=== PATIENT | male | born 1945 | race Caucasian/White ===

== ENCOUNTER → 2016-08-19 08:06 | Outpatient (CLI) | payer MEDICARE, OTHER | END | disposition home or self-care (01) | LOC: D.CT 08:06 | DX: K57.90 Diverticulosis of intestine, part unspecified, without perforation or abscess without bleeding (principal) ==

== ENCOUNTER 2018-02-07 05:40 | Day surgery (SDC) | payer MEDICARE, OTHER ==
[2018-02-06 12:00] LABS: BASOPHILS 0.1 % (0-2); EOSINOPHILS 1.6 % (0-7); HEMATOCRIT 37.8 % (42.0-54.0); IMMATURE GRANULOCYTES 0.1 % (0-5); LYMPHOCYTES 24.4 % (15-50); MCH 30.4 pg (26.0-34.0); MCHC 34.4 g/dL (31.0-37.0); MCV 88.3 fL (80.0-100.0); MEAN PLATELET VOLUME 11.2 fL (7.4-10.4); MONOCYTES 8.7 % (2-11); NEUTROPHILS 65.1 % (40-80); PLATELET COUNT 193 10x3/uL (130-400); RBC 4.28 10x6/uL (4.20-6.10); RDW 13.5 % (11.5-14.5); WBC 6.9 10x3/uL (4.8-10.8)
[2018-02-06 12:19] LABS: ANION GAP 8.9 mmol/L (8-16); CALCIUM 9.1 mg/dL (8.5-10.1); CARBON DIOXIDE 30.7 mmol/L (21.0-32.0); CREATININE - SERUM 1.8 mg/dL (0.6-1.3); POTASSIUM - SERUM 3.6 mmol/L (3.5-5.1)
[~2018-02-07] VITALS: Ht 193 cm; Wt 99.8 kg
--- NOTE | ~2018-02-07 | OP ---
PATIENT NAME: CASEY HIGGINS MEDICAL RECORD: [id number] :45 [facility] DATE: SURGEON: JUANITO SAAVEDRA MD DATE OF OPERATION: 02/07/2018 SURGEON: Juanito Saavedra MD ANESTHESIA: MAC by Pako Rahman CRNA DIAGNOSIS: Elevated PSA 9.4 on 12/08/2017. PROCEDURE: Transrectal ultrasound and prostate biopsy. FINDINGS: 144 gram prostate with right hypoechoic lesions. SPECIMENS: Prostate biopsy cores. BLOOD LOSS: Minimal. CLINICAL HISTORY: This is a 72-year-old male, who was found to have an elevated PSA on serum testing. His PSA was 6.6 in July of 2016. When it was redone on November of 2017, it was 9.4. He has a positive family history of prostate cancer with his brother having had prostate cancer. His brother was diagnosed at age 74 and the brother had radiation treatment. He has some obstructive BPH symptoms of voiding. On rectal examination, he had an enlarged prostate, which I estimated at over 80 grams. No nodules were palpated, however. He comes today to have a transrectal ultrasound and prostate biopsy. He was given Ancef excavating contractor to the OR. He has no medication allergies. DESCRIPTION OF PROCEDURE: The patient was given IV sedation. He was placed into dorsal lithotomy position. The transrectal ultrasound probe was introduced and prostate size measurements were obtained. We initially obtained the prostate size estimate of 199 grams. We then redid the measurements just to confirm and we received a size estimate of 144. He has a very enlarged prostate. Within the prostate, 2 hypoechoic lesions were seen in the right mid and basal areas. Sextant biopsies were obtained with at least 3 cores from each sextant. In the right mid, I tried to target the lesions that were hypoechoic. Once all the cores were obtained, the procedure was terminated. We did notice during the prostate biopsy and transrectal ultrasound that his bladder was extremely full. At the end of the case, the penis was prepped and a red rubber catheter was inserted to drain the bladder. The catheter was then removed. I will see the patient in followup to review the pathology with him. TRANSINT:[id number] Voice Confirmation ID: [id number] DOCUMENT ID: [id number] JUANITO SAAVEDRA MD at 1729 CC: [id number] DICTATION DATE: 02/07/18 0945 GOLF CADDIE: 02/07/18 1216 [facility] 02/07/18 [place] [id number] [place] [id number]
[~2018-02-07 05:40] MED LIST: GLIPIZIDE10 MG PO; GLUCOPHAGE1000 MG PO; HCTZ25 MG PO; LANTUS INSULIN10 ML SC; LIPITOR40 MG PO; LOTENSIN40 MG PO; MULTIPLE VITAMI1 TA1 PO
[2018-02-07] MEDS ORDERED: ESTER-C 500 MG1 TAB PO (07:38)
[2018-02-07 07:41] VITALS: Ht 193 cm; Wt 99.8 kg
[2018-03-26] MEDS ORDERED: OXYBUTYNIN CHLOR5 MG PO (12:55)
[2018-03-26] MEDS ORDERED: ACTOPLUS MET X1 EACH PO (12:56)
== END 2018-02-07 11:30 | disposition home or self-care (01) ==
LOC: D.OPS 05:40 → D.PAN 08:30 → D.OPS 08:30
PROVIDERS: Anesthesiology
DX: R97.20 Elevated prostate specific antigen [PSA] (principal); Z01.812 Encounter for preprocedural laboratory examination

== ENCOUNTER → 2018-02-21 12:23 | Outpatient (CLI) | payer MEDICARE, OTHER ==
[2018-02-07 07:41] VITALS: BMI 26.8
[~2018-02-21 12:23] MED LIST changes: +ACTOPLUS MET X1 EACH PO; +ACTOS15 MG PO; +ESTER-C 500 MG1 TAB PO; +HYDROCODON-ACE1 EAC7 PO; +OXYBUTYNIN CHLOR5 MG PO
== END | disposition home or self-care (01) ==
LOC: D.LABREF 12:23
DX: N39.0 Urinary tract infection, site not specified (principal)

== ENCOUNTER 2018-03-27 00:51 | Day surgery (SDC) | payer MEDICARE, OTHER ==
[2018-03-26 13:25] LABS: HEMATOCRIT 38.4 % (42.0-54.0); HEMOGLOBIN 13.1 g/dL (13.5-17.5); MCH 29.8 pg (26.0-34.0); MCHC 34.1 g/dL (31.0-37.0); MCV 87.5 fL (80.0-100.0); MEAN PLATELET VOLUME 11.1 fL (7.4-10.4); RBC 4.39 10x6/uL (4.20-6.10); RDW 14.2 % (11.5-14.5); WBC 7.3 10x3/uL (4.8-10.8)
[2018-03-26 13:52] LABS: ANION GAP 10.6 mmol/L (8-16); CALCIUM 8.6 mg/dL (8.5-10.1); CARBON DIOXIDE 28.8 mmol/L (21.0-32.0); CREATININE - SERUM 1.4 mg/dL (0.6-1.3); POTASSIUM - SERUM 4.4 mmol/L (3.5-5.1)
[~2018-03-27] VITALS: Ht 188 cm; Wt 102.3 kg
--- NOTE | ~2018-03-27 | OP ---
PATIENT NAME: CASEY HIGGINS MEDICAL RECORD: [id number] :45 LOCATION:[facility] ADMISSION DATE: SURGEON: JUANITO SAAVEDRA MD DATE OF OPERATION: 03/27/2018 SURGEON: Juanito Saavedra MD ANESTHESIA: General anesthesia by Dr. Tejas Knapp. DIAGNOSIS: Urinary retention due to obstructive benign prostatic hypertrophy. FINDINGS: A very large trilobar hyperplasia. Ongoing bleeding made visualization of the ureteral orifices very difficult. No bladder tumors seen. PROCEDURES: Cystoscopy, GreenLight laser transurethral resection of the prostate. Power 80-120 carlos, laser on time 29 minutes and 31 seconds, total energy 161,053 kilojoules. The procedure was then converted to bipolar transurethral resection of the prostate. SPECIMENS: Prostate resection chips. BLOOD LOSS: Difficult to quantitate. CBC will be drawn in the recovery room. CLINICAL HISTORY: This is a 73-year-old male, who is in urinary retention. He has an indwelling Dee catheter for some time. He is on finasteride and tamsulosin. He had an elevated PSA prior to starting finasteride of 9.4. He had a transrectal ultrasound, which revealed a massive prostate enlarged at 144 grams. A prostate biopsy revealed that he had benign tissues. There was chronic inflammation also. On 02/21/2018, he had a UTI with Enterococcus faecalis and he was treated with amoxicillin. At one point, he had been performing self-intermittent catheterization. He had trouble with this and he went to the [facility] Emergency Room on 02/26/2018, and they placed a Dee catheter into him on that date. The patient did not wish to wait a year for finasteride to take effect. I did discuss an open suprapubic prostatectomy with him. He is not wanting to have open surgery. Therefore, we will try a GreenLight laser transurethral resection of the prostate. However, I told him that this procedure would be very difficult given the massive size of his prostate. He is not allergic to any medications and he was given Ancef 1 gram IV pupil personnel services director to the OR. DESCRIPTION OF PROCEDURE: The patient was given induction of general anesthesia. He was placed in the dorsal lithotomy position and prepped and draped. I introduced the laser resectoscope using obturator. Looking in the bladder, I saw quite significant amount of venous bleeding, which obscured the view of the bladder. However, looking carefully on the bladder wall, I did not see any bladder tumors. The bladder wall was heavily trabeculated. It was difficult to see the ureteral orifices due to bleeding from the bladder neck. Looking more distally, I could see massive enlargement of the lateral lobes. The verumontanum was seen at the apex of the prostate. We then introduced the laser fiber. We started the resection in the region between the bladder neck and just proximal to the verumontanum. I initially started with 80 carlos, I tried to devascularize the prostatic urethra. However, as the prostate is extremely vascular; not only it is vascular, it is richly suppled with arterial blood gases. We ran across many arterioles, which bled. These required a special effort to coagulate with the coagulation setting of the laser. OPERATIVE REPORT [id number] CASEY HIGGINS Eventually, I had the entire prostate partly resected, but the bleeding kept getting more and more heavy. Visualization was extremely difficult. I increased the power level to 120 carlos as the tissue became a bit more desiccated. At a certain point, I decided that I could not stop the bleeding using the laser and therefore we switched to the bipolar resectoscope. A 26-Surinamese resectoscope Olympus with the 24-Surinamese resection loop was used. Normal saline was used for irrigation. Starting at the bladder neck, I again started to resect. We encountered significant quantities of arterial bleeding. Any arterial bleeder that I could find was immediately cauterized. In this very tedious manner, we managed to remove a lot of tissue. In fact, on the left lateral wall, I have actually perforated through into the venous sinuses. From the lateral wall, I then migrated to the posterior wall. Finally, the right lateral wall was resected. A significant quantity of tissue still is present, but there is a good channel for him to void through. We tried to leave the anterior wall alone. However, I spent a considerable amount of time looking on the entire surface of the prostate to coagulate any small arteriolar bleeding. There was some bleeding from the anterior wall in either bladder neck and some of this had to be resected in order to fully coagulate the arterial responsible for the bleeding. At the end of the procedure, no further arterial bleeding was seen. A guidewire was inserted into the bladder through the resectoscope sheath. The resectoscope sheath was then removed, leaving the guidewire in place. We used an Amplatz Super Stiff wire. A 22-Surinamese 3-way redding tip Dee catheter was then inserted over the guidewire into the bladder. Once the catheter was fully in the bladder, the balloon was inflated with 30 cc of sterile water. Normal saline bladder irrigation was started for continuous bladder irrigation. I will admit the patient to hospital for the continuous bladder irrigation. Once the drains clear, I will send him home with the catheter to have the catheter removed in 1 to 2 weeks' time. TRANSINT:[id number] Voice Confirmation ID: [id number] DOCUMENT ID: [id number] JUANITO SAAVEDRA MD at 1246 CC: [id number] DICTATION DATE: 03/27/18 1151 RHINESTONE SETTER: 03/27/18 1243 [facility] [address] [place] [address]
[~2018-03-27 00:51] MED LIST changes: -ACTOS15 MG PO; -HYDROCODON-ACE1 EAC7 PO
[2018-03-27 06:54] VITALS: BP 138/78; BMI 28.7
[2018-03-27 12:20] LABS: BASOPHILS 0.2 % (0-2); EOSINOPHILS 0.8 % (0-7); IMMATURE GRANULOCYTES 0.4 % (0-5); LYMPHOCYTES 14.5 % (15-50); MCHC 32.3 g/dL (31.0-37.0); MEAN PLATELET VOLUME 11.2 fL (7.4-10.4); MONOCYTES 5.6 % (2-11); NEUTROPHILS 78.5 % (40-80); RDW 14.5 % (11.5-14.5)
[2018-03-27 12:29] LABS: HEMATOCRIT 29.1 % (42.0-54.0); HEMOGLOBIN 9.4 g/dL (13.5-17.5); MCV 89.8 fL (80.0-100.0); PLATELET COUNT 148 10x3/uL (130-400); RBC 3.24 10x6/uL (4.20-6.10); WBC 13.1 10x3/uL (4.8-10.8)
[2018-03-27 20:39] VITALS: BP 131/70
[2018-03-27 22:44] VITALS: BP 138/78; Ht 188 cm; Wt 102.3 kg
[2018-03-28] VITALS: BP 112/56
[2018-03-28 04:00] VITALS: BP 154/72
[2018-03-28 07:36] VITALS: BP 151/79
[2018-03-28 08:47] LABS: BASOPHILS 0.1 % (0-2); EOSINOPHILS 0.5 % (0-7); HEMATOCRIT 28.7 % (42.0-54.0); HEMOGLOBIN 9.4 g/dL (13.5-17.5); IMMATURE GRANULOCYTES 0.2 % (0-5); LYMPHOCYTES 9.2 % (15-50); MCHC 32.8 g/dL (31.0-37.0); MCV 88.6 fL (80.0-100.0); MEAN PLATELET VOLUME 10.9 fL (7.4-10.4); MONOCYTES 7.6 % (2-11); NEUTROPHILS 82.4 % (40-80); RBC 3.24 10x6/uL (4.20-6.10); RDW 14.8 % (11.5-14.5); WBC 10.2 10x3/uL (4.8-10.8)
[2018-03-28 08:51] LABS: PLATELET COUNT 189 10x3/uL (130-400)
[2018-03-28 08:55] LABS: CARBON DIOXIDE 22.4 mmol/L (21.0-32.0); CHLORIDE - SERUM 106 mmol/L (98-107); GLUCOSE 225 mg/dL (74-106); POTASSIUM - SERUM 3.8 mmol/L (3.5-5.1); SODIUM 137 mmol/L (136-145)
[2018-03-28 08:56] LABS: CALC OSMOLALITY 279 mosm/kg (275-300); UREA NITROGEN 11 mg/dL (7-18); eGFR NON AFRICAN AMERICAN 78 mL/min (90-120)
[2018-03-28 08:57] LABS: CALCIUM 6.8 mg/dL (8.5-10.1)
[2018-03-28] MEDS ORDERED: HYDROCODON-ACE1 EAC7 PO (09:28)
[2018-03-28] MEDS ORDERED: ACTOS15 MG PO (09:36)
== END 2018-03-28 14:35 | disposition home or self-care (01) ==
LOC: OBSVTIME → D.OPS 00:51 → D.PAN 07:30 → D.OPS 07:30 → D.M2 19:03 → D.OPS 19:04 → D.M2 19:04 → OBSVTIME 03-28 13:26 → D.OPS 03-28 14:35 → D.M2 03-28 14:35
PROVIDERS: Anesthesiology; Urology
DX: N40.1 Benign prostatic hyperplasia with lower urinary tract symptoms (principal); R33.8 Other retention of urine; E11.9 Type 2 diabetes mellitus without complications; I10 Essential (primary) hypertension; Z87.891 Personal history of nicotine dependence

== ENCOUNTER → 2018-04-18 18:44 | Outpatient (CLI) | payer MEDICARE, OTHER ==
[2018-03-27 22:44] VITALS: BMI 28.3
[~2018-04-18 18:44] MED LIST changes: +ACTOS15 MG PO; +HYDROCODON-ACE1 EAC7 PO
== END | disposition home or self-care (01) ==
LOC: D.LABREF 18:44
DX: D72.829 Elevated white blood cell count, unspecified (principal); R31.9 Hematuria, unspecified

== ENCOUNTER 2018-04-19 05:16 | Day surgery (SDC) | payer MEDICARE, OTHER ==
[2018-04-18 16:04] LABS: BASOPHILS 0.5 % (0-2); EOSINOPHILS 2.1 % (0-7); HEMOGLOBIN 11.3 g/dL (13.5-17.5); IMMATURE GRANULOCYTES 0.3 % (0-5); LYMPHOCYTES 21.6 % (15-50); MCHC 33.2 g/dL (31.0-37.0); MCV 87.4 fL (80.0-100.0); MEAN PLATELET VOLUME 10.2 fL (7.4-10.4); MONOCYTES 7.3 % (2-11); NEUTROPHILS 68.2 % (40-80); RBC 3.89 10x6/uL (4.20-6.10); RDW 14.3 % (11.5-14.5); WBC 7.5 10x3/uL (4.8-10.8)
[2018-04-18 16:21] LABS: ANION GAP 14.4 mmol/L (8-16); CARBON DIOXIDE 26.9 mmol/L (21.0-32.0); CREATININE - SERUM 1.2 mg/dL (0.6-1.3); POTASSIUM - SERUM 4.3 mmol/L (3.5-5.1)
[2018-04-18 16:24] LABS: PLATELET COUNT 348 10x3/uL (130-400)
[~2018-04-19] VITALS: Ht 188 cm; Wt 101.8 kg
--- NOTE | ~2018-04-19 | OP ---
PATIENT NAME: CASEY HIGGINS MEDICAL RECORD: [id number] :45 LOCATION:.[facility] ADMISSION DATE: SURGEON: MACK SAAVEDRA MD DATE OF OPERATION: 04/19/2018 SURGEON: Mack Saavedra MD ANESTHESIA: TIVA by Mack Keenan MD PROCEDURE: Cystoscopy. DIAGNOSIS: Bladder outlet obstruction post TURP. FINDINGS: No blood clots, no retained prostatic chips. He has some flaps from the prostate resection, which act as an obstruction to the flow. ESTIMATED BLOOD LOSS: None. CLINICAL HISTORY: This is a 73-year-old male, who was in urinary retention. On transrectal ultrasound, he had a very large prostate being measured at 144 grams. About a month ago, he had a GreenLight laser TURP. After more than 160,000 kilojoules of energy, the bleeding was so extensive that I had to convert to bipolar resection. Even with bipolar resection, I removed a further 40 grams of tissue. Because of the heavy bleeding, I had to cease. He made an uncomplicated recovery. He is able to void. However, he notes that there are times that it is very difficult for him to get a flow going. He may also have episodes of urge incontinence. This suggests that there is still a persistent bladder outlet obstruction. I wanted to be sure that there was no retained prostatic chip in the bladder acting as an outlet obstruction. He comes today for cystoscopy. He is not allergic to medication. He was given Ancef rest room matron to the OR. DESCRIPTION OF PROCEDURE: The patient was given IV sedation. He was placed into the dorsal lithotomy position and prepped and draped. Lidocaine jelly was inserted into the urethra. A 21-Stateless cystoscope with 30-degree lens was used for visualization. No penile urethral strictures were seen. The prostate showed signs of extensive resection, although there is still quite a lot of residual BPH left. Near the bladder neck, I see 2 flaps of tissue, which together can act as a flap valve to obstruct the bladder outlet. I was very tempted to resect these, however, given the fact that he is actually moving to [place] in the next few days, I decided against it. He has a urologist in [place]. His urologist in [place] will have to complete the TURP for him. TRANSINT:[id number] Voice Confirmation ID: [id number] DOCUMENT ID: [id number] MACK SAAVEDAR MD at 0856 CC: [id number] DICTATION DATE: 04/19/18814 LUMBER CARRIER: 04/19/18 0837 [facility] [address] [place] [id number]
[2018-04-19 06:08] VITALS: BP 149/79; Ht 188 cm; Wt 101.8 kg
== END 2018-04-19 10:00 | disposition home or self-care (01) ==
LOC: D.OPS 05:16 → D.PAN 07:30 → D.OPS 07:30
PROVIDERS: Anesthesiology
DX: N13.8 Other obstructive and reflux uropathy (principal); Z98.890 Other specified postprocedural states; Z01.812 Encounter for preprocedural laboratory examination

== ENCOUNTER 2018-04-24 05:10 | Inpatient (IN) | payer MEDICARE, OTHER ==
[~2018-04-24] VITALS: Ht 193 cm; Wt 99.8 kg
--- NOTE | ~2018-04-24 | OP ---
PATIENT NAME: CASEY HIGGINS MEDICAL RECORD: [id number] :45 LOCATION:[facility] ADMISSION DATE: SURGEON: MACK SAAVEDRA MD DATE OF OPERATION: 04/24/2018 SURGEON: Mack Saavedra MD ANESTHESIA: General anesthesia by Aishwarya Abreu CRNA. DIAGNOSIS: Obstructive benign prostatic hypertrophy with overflow urinary incontinence. PROCEDURE: Cystoscopy, transurethral resection of the prostate using the bipolar resectoscope, OR duration 3.5 hours, 82 liters of normal saline irrigation used during the resection. FINDINGS: Obstructive benign prostatic hypertrophy with a lot of remaining residual tissue. Very vascular prostate with multiple arterial bleeding vessels. No bladder tumors were seen. Heavily trabeculated bladder. SPECIMENS: Prostate resection chips. BLOOD LOSS: 1.5 liters. Intraoperative hemoglobin had dropped to 8.2 from 11.9 preoperatively. Two units of packed red blood cells was transfused intraoperatively. CLINICAL HISTORY: This is a 73-year-old male, who initially presented with urinary retention. He had a very enlarged prostate also. We did a transrectal ultrasound and prostate biopsy on him because of his elevated PSA. The transrectal ultrasound estimated to his prostate size at 144 grams. His prostate biopsy was benign. About a month ago, he had an attempted GreenLight laser TURP. After 160,000 kilojoules of laser energy, the excessive bleeding from the prostate made continuing on with the laser untenable. We then switched over the bipolar resectoscope and I resected it and was best as I could given the severity of bleeding. Postoperatively, he has maintained that he still had trouble voiding. He has had episodes where he could not void. He reverted to intermittent catheterization. He would get residuals of 600 mL to 1 liter. I performed cystoscopy on him to determine how much obstruction was remaining. He did not have any resection chips in the bladder; however, he had a lot of tissue flaps, especially around the bladder neck, which were acting as a bladder outlet obstruction. There was still a lot of unresected prostate tissue. The patient is intending to move to [place] at the end of the month. Therefore, at that time I did not proceed with resection as I suppose that his new urologist in [place] would deal with this issue. However, on following up with the patient, the patient wanted to get this addressed. The risk of bleeding is very clear in this patient and he understands that risk as well as his . He is not allergic to any medications. We had him on Ancef carbonation equipment tender to the OR. DESCRIPTION OF PROCEDURE: The patient was given induction of general anesthesia. He was placed in the dorsal lithotomy position and prepped and draped. I used the bipolar resectoscope, 26-Turkmen with a 24-Turkmen resection loop. A 30-degree lens was used for visualization. He does not have any urethral strictures. Going back into the prostate, he has a lot of residual prostate tissue. There are tissue flaps near the bladder neck, which acts as an outflow obstruction. Even at his last surgery, I could not clearly see his OPERATIVE REPORT [id number] CASEY HIGGINS ureteral orifices. However, I did not resect into the bladder neck beyond what I had resected previously. Going from the level of the bladder neck, all the way to the level of the verumontanum, I started resecting the prostate tissue initially, the bladder neck area. Immediately, I encountered significant bleeding. I would try to cauterize the arterial bleeding. However, as arterial bleeding was often hidden behind residual BPH tissue, this tissue had to be resected in order to allow the first bleeder to be visualized. Of course, once the tissue was resected, then more bleeders were present and in this way ultimately the entire TURP was performed to completion. I found that most of the arterial bleeders were located adjacent to prostatic stones. Therefore, I am in the right plane. In fact, some of the lateral lobes bilaterally I have perforated through into the periprostatic fat. There was significant bleeding throughout the surgery. I did not extend the resection beyond the verumontanum. There was also a significant amount of median lobe. I dissected out the median lobe without undermining the bladder. At the end of the procedure and throughout the procedure, I would periodically use an [employer] evacuator to remove the prostate resection chips. Several larger chips were also removed using a resection loop as a means to remove pinch out and removed the specimens. During the surgery, I went through about four bipolar resection loops, which I either burned out or broke it as I was trying to use them to remove tissue specimens with. Towards the end of the procedure, I looked at every quadrant of the prostate going stepwise from 12 o'clock and moving from bladder neck all the way to the level of the verumontanum. I would cauterize anything that looked like it was bleeding. A very large arterial bleeder was noted in the left lateral wall. This was apparently the source of most of my bleeding during surgery. This was heavily cauterized. A similar vessel was noted on the right lateral lobe and this was also heavily cauterized. Multiple smaller arterial vessels were also cauterized. At the end of the case, the drainage fluid was relatively clear. There were no prostate resection chips in the bladder. The scope lens was removed, leaving the sheath in place. Through the sheath, I inserted a Sensor wire into the bladder. The sheath was then removed, leaving the Sensor wire in place. An 18-Turkmen 3-way Dee catheter, which has been converted to a kasaan tip catheter was placed over the guidewire into the bladder. Once the catheter was up to its hub at the urethral meatus, the Dee balloon was inflated with 30 cc of sterile water. Continuous bladder irrigation was then started with normal saline. I also taped the catheter to his leg under tension to tamponade venous bleeding. The patient will be brought into the hospital for continuous bladder irrigation. TRANSINT:[id number] Voice Confirmation ID: [id number] DOCUMENT ID: [id number] MACK SAAVEDRA MD at 1429 CC: [id number] DICTATION DATE: 04/24/18 1228 APPLIANCE SERVICE REPRESENTATIVE: 04/24/18 1256 [facility] [address] [place] [address]
[2018-04-24 05:27] LABS: HEMATOCRIT 35.6 % (42.0-54.0); HEMOGLOBIN 11.9 g/dL (13.5-17.5); MCHC 33.4 g/dL (31.0-37.0); MCV 86.6 fL (80.0-100.0); MEAN PLATELET VOLUME 10.3 fL (7.4-10.4); RBC 4.11 10x6/uL (4.20-6.10); RDW 14.1 % (11.5-14.5); WBC 7.2 10x3/uL (4.8-10.8)
[2018-04-24 05:50] LABS: ANION GAP 12.9 mmol/L (8-16); CALCIUM 9.4 mg/dL (8.5-10.1); CARBON DIOXIDE 27.5 mmol/L (21.0-32.0); CREATININE - SERUM 1.1 mg/dL (0.6-1.3); POTASSIUM - SERUM 4.4 mmol/L (3.5-5.1)
[2018-04-24 06:44] VITALS: BP 142/73; BMI 28.3
[2018-04-24 10:22] LABS: BASOPHILS 0.4 % (0-2); EOSINOPHILS 1.5 % (0-7); IMMATURE GRANULOCYTES 0.2 % (0-5); LYMPHOCYTES 24.1 % (15-50); MCH 28.6 pg (26.0-34.0); MCHC 32.7 g/dL (31.0-37.0); MCV 87.5 fL (80.0-100.0); MEAN PLATELET VOLUME 10.3 fL (7.4-10.4); NEUTROPHILS 68.8 % (40-80); RDW 14.2 % (11.5-14.5)
[2018-04-24 10:25] LABS: HEMATOCRIT 25.1 % (42.0-54.0); HEMOGLOBIN 8.2 g/dL (13.5-17.5); PLATELET COUNT 229 10x3/uL (130-400); RBC 2.87 10x6/uL (4.20-6.10); WBC 4.8 10x3/uL (4.8-10.8)
[2018-04-24 13:30] VITALS: BP 104/59
[2018-04-24 14:58] LABS: BASOPHILS 0.1 % (0-2); EOSINOPHILS 0.1 % (0-7); HEMATOCRIT 29.5 % (42.0-54.0); HEMOGLOBIN 9.7 g/dL (13.5-17.5); IMMATURE GRANULOCYTES 0.5 % (0-5); LYMPHOCYTES 5.9 % (15-50); MCH 29.4 pg (26.0-34.0); MCHC 32.9 g/dL (31.0-37.0); MCV 89.4 fL (80.0-100.0); MEAN PLATELET VOLUME 10.4 fL (7.4-10.4); MONOCYTES 5.3 % (2-11); NEUTROPHILS 88.1 % (40-80); PLATELET COUNT 259 10x3/uL (130-400); RDW 14.4 % (11.5-14.5)
[2018-04-24 15:01] LABS: WBC 18.3 10x3/uL (4.8-10.8)
[2018-04-24 15:51] VITALS: BP 104/59; BMI 26.8
[2018-04-24 22:10] VITALS: BP 149/76
[2018-04-25 03:54] VITALS: BP 135/57
[2018-04-25 04:25] LABS: BASOPHILS 0.1 % (0-2); EOSINOPHILS 1.4 % (0-7); IMMATURE GRANULOCYTES 0.3 % (0-5); LYMPHOCYTES 5.1 % (15-50); MCH 29.7 pg (26.0-34.0); MCHC 34.5 g/dL (31.0-37.0); MEAN PLATELET VOLUME 10.1 fL (7.4-10.4); MONOCYTES 6.3 % (2-11); NEUTROPHILS 86.8 % (40-80); PLATELET COUNT 209 10x3/uL (130-400); RDW 14.9 % (11.5-14.5); WBC 16.7 10x3/uL (4.8-10.8)
[2018-04-25 04:39] LABS: CREATININE - SERUM 1.1 mg/dL (0.6-1.3); POTASSIUM - SERUM 4.3 mmol/L (3.5-5.1)
[2018-04-25 04:42] LABS: ANION GAP 12.5 mmol/L (8-16); CARBON DIOXIDE 19.8 mmol/L (21.0-32.0); RBC 2.29 10x6/uL (4.20-6.10)
[2018-04-25 04:46] LABS: CALCIUM 6.2 mg/dL (8.5-10.1); HEMATOCRIT 19.7 % (42.0-54.0); HEMOGLOBIN 6.8 g/dL (13.5-17.5)
[2018-04-25 05:46] VITALS: BP 135/57
[2018-04-25 08:26] VITALS: BP 145/65
[2018-04-25 12:46] VITALS: Ht 193 cm; Wt 99.8 kg
[2018-04-25 13:47] VITALS: BP 150/62
[2018-04-25 22:57] VITALS: BP 131/70
[2018-04-26 05:41] VITALS: BP 145/68
[2018-04-26 08:01] LABS: BASOPHILS 0.2 % (0-2); EOSINOPHILS 4.9 % (0-7); HEMOGLOBIN 7.8 g/dL (13.5-17.5); IMMATURE GRANULOCYTES 0.6 % (0-5); LYMPHOCYTES 8.7 % (15-50); MCH 29.1 pg (26.0-34.0); MCHC 33.9 g/dL (31.0-37.0); MCV 85.8 fL (80.0-100.0); MEAN PLATELET VOLUME 9.8 fL (7.4-10.4); MONOCYTES 7.4 % (2-11); NEUTROPHILS 78.2 % (40-80); PLATELET COUNT 171 10x3/uL (130-400); RBC 2.68 10x6/uL (4.20-6.10); WBC 10.3 10x3/uL (4.8-10.8)
[2018-04-26 09:20] VITALS: BP 149/65
[2018-04-26 14:46] LABS: BASOPHILS 0.2 % (0-2); EOSINOPHILS 4.6 % (0-7); HEMATOCRIT 23.2 % (42.0-54.0); HEMOGLOBIN 7.8 g/dL (13.5-17.5); IMMATURE GRANULOCYTES 0.4 % (0-5); MCH 28.9 pg (26.0-34.0); MCHC 33.6 g/dL (31.0-37.0); MCV 85.9 fL (80.0-100.0); MEAN PLATELET VOLUME 9.5 fL (7.4-10.4); MONOCYTES 7.1 % (2-11); NEUTROPHILS 76.7 % (40-80); PLATELET COUNT 181 10x3/uL (130-400); WBC 11.1 10x3/uL (4.8-10.8)
[2018-04-26 20:00] VITALS: BP 139/66
[2018-04-26 20:15] VITALS: BP 154/61
[2018-04-26 20:30] VITALS: BP 167/71
[2018-04-26 22:30] VITALS: BP 160/73
[2018-04-27 04:00] VITALS: BP 147/75
[2018-04-27 05:54] LABS: CHLORIDE - SERUM 105 mmol/L (98-107); CREATININE - SERUM 0.9 mg/dL (0.6-1.3); SODIUM 139 mmol/L (136-145); eGFR NON AFRICAN AMERICAN 88 mL/min (90-120)
[2018-04-27 06:07] LABS: CALC OSMOLALITY 275 mosm/kg (275-300); CALCIUM 8.4 mg/dL (8.5-10.1); CARBON DIOXIDE 26.4 mmol/L (21.0-32.0); GLUCOSE 83 mg/dL (74-106); POTASSIUM - SERUM 3.2 mmol/L (3.5-5.1); UREA NITROGEN 9 mg/dL (7-18)
[2018-04-27 06:14] LABS: BASOPHILS 0.1 % (0-2); EOSINOPHILS 4.4 % (0-7); HEMATOCRIT 27.9 % (42.0-54.0); HEMOGLOBIN 9.4 g/dL (13.5-17.5); IMMATURE GRANULOCYTES 0.4 % (0-5); LYMPHOCYTES 12.7 % (15-50); MCH 28.9 pg (26.0-34.0); MCHC 33.7 g/dL (31.0-37.0); MCV 85.8 fL (80.0-100.0); MEAN PLATELET VOLUME 10.2 fL (7.4-10.4); MONOCYTES 8.4 % (2-11); PLATELET COUNT 193 10x3/uL (130-400); RBC 3.25 10x6/uL (4.20-6.10); RDW 14.6 % (11.5-14.5); WBC 10.1 10x3/uL (4.8-10.8)
[2018-04-27 08:02] VITALS: BP 155/79
== END 2018-04-27 11:01 | disposition home or self-care (01) | DRG 713 ==
LOC: D.MS 05:10 → D.OPS 05:10 → D.PAN 07:30 → D.OPS 07:30 → D.MS 12:45 → D.OPS 04-25 10:26 → D.MS 04-25 10:27
PROVIDERS: Anesthesiology; Urology
PROC: 0VB08ZZ Excision of Prostate, Via Natural or Artificial Opening Endoscopic (ICD-10-PCS; principal; 2018-04-24 07:30)
DX: N40.1 Benign prostatic hyperplasia with lower urinary tract symptoms (principal); N13.8 Other obstructive and reflux uropathy; N39.498 Other specified urinary incontinence